=== PATIENT | male | born 1935 | race Caucasian/White ===

== ENCOUNTER 2020-02-17 14:58 | Emergency (ER) | payer OTHER ==
[~2020-02-17] VITALS: Ht 175.3 cm; Wt 77.1 kg
[~2020-02-17 14:58] MED LIST: ARICEPT 5 MG TAB5 MG PO; ASPIR 8181 M1 PO; B-COMPLEX PLUS1 EACH PO; COREG25 MG PO; COREG6.25 MG PO; DERMACINRX5000 UNIT PO; DULCOLAX STOOL100 M1 PO; FOLBIC RF TABL1 EACH PO; FOLIC ACID1 MG PO; FUROSEMIDE 20 M20 M1 PO; HYDRALAZINE 10M10 MG PO; HYDROCHLOROTH12.5 M1 PO; KLOR-CON 10 ER10 MEQ PO; LIPITOR 40 MG T40 M1 PO; LISINOPRIL20 MG PO; NAMENDA 10 MG T10 MG PO; NAMENDA XR21 MG PO; NORVASC 2.5 MG2.5 M1 PO; PLAVIX 75 MG TA75 MG PO; PROTONIX40 M2 PO; SEROQUEL 50 MG50 M1 PO; VITAMIN B-121000 MC2 SUBLING; VITAMIN D1000 UNI1 PO
[2020-02-17 15:19] LABS: URINE BILIRUBIN NEGATIVE (Negative); URINE BLOOD NEGATIVE (Negative); URINE CLARITY CLEAR; URINE COLOR YELLOW; URINE GLUCOSE-RANDOM* NEGATIVE (Negative); URINE KETONES NEGATIVE (Negative); URINE LEUKOCYTES-REFLEX NEGATIVE (Negative); URINE NITRITE-REFLEX NEGATIVE (Negative); URINE PROTEIN (DIPSTICK) NEGATIVE (Negative); URINE UROBILINOGEN 0.2 E.U./dl (0.2-1.0)
[2020-02-17] MEDS ORDERED: GABAPENTIN 100100 MG PO (16:01)
[2020-02-17] MEDS ORDERED: CARVEDILOL12.5 MG PO (16:03)
[2020-02-17 16:06] LABS: ABSOLUTE NEUTROPHILS 4.7 thou/uL (1.4-8.2); BASOPHILS 0.7 % (0.0-2.0); EOSINOPHILS 1.9 % (0.0-3.0); HEMATOCRIT 42.3 % (42.0-52.0); HEMOGLOBIN 13.5 gm/dL (14.0-18.0); LYMPHOCYTES 20.8 % (24.0-44.0); MCH 28.5 pg (26.0-34.0); MCV 89.1 fL (80.0-100.0); MONOCYTES 7.4 % (1.0-8.0); POLYS 69.2 % (36.0-66.0); RBC 4.74 mil/uL (4.50-6.00); RDW 16.5 % (10.5-14.5); WBC 6.8 thou/uL (4.0-11.0)
[2020-02-17 16:17] LABS: CALCIUM 9.1 mg/dL (8.5-10.1); CREATININE 1.4 mg/dL (0.7-1.3); POTASSIUM 3.8 mmol/L (3.5-5.1)
[2020-02-17 16:27] LABS: LARGE PLATELETS OCCASIONAL; PLATELET COUNT 125 thou/uL (150-400)
[2020-02-18] MEDS ORDERED: MEMANTINE HCL10 MG PO (03:41)
[2020-02-18] MEDS ORDERED: KLOR-CON 10 ER10 MEQ PO (03:42)
[2020-02-18] MEDS ORDERED: SEROQUEL 100 M100 M1 PO (03:44)
[2020-02-18] MEDS ORDERED: QUETIAPINE FUMA50 MG PO (03:45)
[2020-02-18] MEDS ORDERED: VITAMIN D325 MC1 PO (03:49)
[2020-02-18] MEDS ORDERED: LIPITOR80 MG PO (03:50)
[2020-02-18 04:11] VITALS: BP 138/73
== END 2020-02-18 04:15 | disposition still patient (30) ==
LOC: ER 14:58
PROVIDERS: Emergency Medicine
DX: F03.91 Unspecified dementia, unspecified severity, with behavioral disturbance (principal); Z20.828 Contact with and (suspected) exposure to other viral communicable diseases; E78.5 Hyperlipidemia, unspecified; I25.10 Atherosclerotic heart disease of native coronary artery without angina pectoris; I10 Essential (primary) hypertension; K21.9 Gastro-esophageal reflux disease without esophagitis; Z79.82 Long term (current) use of aspirin; Z79.899 Other long term (current) drug therapy

== ENCOUNTER 2020-02-18 03:14 | Inpatient (IN) | payer OTHER ==
[~2020-02-18] VITALS: Ht 175.3 cm; Wt 80.5 kg
[~2020-02-18 03:14] MED LIST changes: +CARVEDILOL12.5 MG PO; +GABAPENTIN 100100 MG PO
[2020-02-18] MEDS ORDERED: MEMANTINE HCL10 MG PO (03:41)
[2020-02-18] MEDS ORDERED: KLOR-CON 10 ER10 MEQ PO (03:42)
[2020-02-18] MEDS ORDERED: SEROQUEL 100 M100 M1 PO (03:44)
[2020-02-18] MEDS ORDERED: QUETIAPINE FUMA50 MG PO (03:45)
[2020-02-18] MEDS ORDERED: VITAMIN D325 MC1 PO (03:49)
[2020-02-18] MEDS ORDERED: LIPITOR80 MG PO (03:50)
--- NOTE | 2020-02-18 05:22 | NUR ---
Report received from VALENTE Costa in ER. Pt arrived to unit at 0418 via w/c accompanied by ER staff. Pt oriented to room. Admission/assessment completed. Pt is oriented to self. Pt is calm, cooperative and pleasant. VS stable. DPOA is Maryam Muna, sister. Orders received from Dr. Brewer. Barb Parsons NP, notifed of arrival to unit (assessed in ED prior to admission). Pt denies pain at this time. Denies SI/HI. Pt is ambulatory. Pt is continent. Pt startles when approached from behind per report. Pt resting in bed at this time. Will continue to monitor for changes and safety per hospital protocol.
[2020-02-18 05:28] VITALS: BP 152/64
--- NOTE | 2020-02-18 05:32 | NUR ---
CALL PLACED TO PATIENT'S SISTER/DPOA ABDULLAHI CORNELIUS'S CELL NUMBER. PHONE RANG BUT UNABLE TO LEAVE MESSAGE. WANTED TO GET TELEPHONE CONSENT FOR TREATMENT AND LET HER KNOW PATIENT IS ON [facility] UNIT AND CODE NUMBER. ALSO NEED TO VERIFY THAT PATIENT IS TO STILL BE DNR. WILL HAVE DAYSHIFT NURSE TRY AND CONTACT DPOA TODAY FOR THIS INFORMATION.
--- NOTE | 2020-02-18 06:08 | NUR ---
PATIENT'S SISTER/DPOA ABDULLAHI CONNOR CALLED BACK. CONSENTS SIGNED PER TELEPHONE CONSENT. SHE STATES TO KEEP PATIENT A DNR. CODE NUMBER AND UNIT NUMBER GIVEN TO HER.
[2020-02-18 07:52] VITALS: BP 141/78
--- NOTE | 2020-02-18 16:48 | NUR ---
CA was unable to complete the assessment with the Pt due to cognitive impairment. CA was able to speak with the Pt's DPOA/ sister, Maryam Toro [phone]. CA requested a copy of the DPOA Paperwork. Maryam was able to fax that paperwork over. A copy was placed in the Pt's chart. Maryam provided some history on the Pt. Pt served 3 times in the [place] War. Pt startles easy. Maryam stated staff should call out Pt's name before approaching and touching the Pt, especially if waking Pt from sleep. Pt dx with kimmie is 2014 and was placed at [facility]. Pt moved to [facility] in in 2016. Pt has had several psychiatric stays ( 2015 [facility], 2016 and 2019 [facility], 2016 [place]). Pt had a stroke about 1 year ago. CA provided the 4 digit code to Maryam to call and check on PT. Maryam had no other questions or concerns at this time. CA will continue to follow
--- NOTE | 2020-02-18 17:19 | NUR ---
HAS BEEN VISIBLE IN DAYROOM OR WANDERING IN HALLWAYS THROUGHOUT SHIFT-NO EXIT SEEKING BEHAVIOR NOTED AND HAS NOT BEEN NOTED TO BE INTRUSIVE WITH PEERS OR ENTER THEIR ROOMS. CONVERSATION FRAGMENTED WITH NOTED APHASIA AND WORD FINDING DIFFICULTY. ABLE TO PROVIDE MOSTLY YES OR NO QUESTIONS DURING AM ASSESSMENT AND 1;1 INTERACTION WITH NURSING STAFF. DENIES PAIN/DISCOMFORT. LUNGS CLEAR. BS ACTIVE. APPETITE GOOD AND DOES FEED SELF.HAS BEEN STANDING AT EXIT DOOR AT TIMES BUT NOT OBSERVED TO BE TRYING TO GET OUT-IN FEMALE PT ROOM X1 BUT EASILY DIRECTED BACK OUT. INCONTINENT OF MODERATE AMOUNT STOOL AND NOTED TO BE PUTTING HANDS DOWN BACK OF PANTS AND SMEARING FECES ONTO PANTS. WAS COOPERATIVE WITH ALLOWING STAFF TO CLEAN HIM.
[2020-02-18 19:34] VITALS: BP 96/61
--- NOTE | 2020-02-19 02:56 | NUR ---
Assumed care of patient this pm shift. Calm and cooperative. Medication adherent. Takes medications whole with thin liquids. Alert and oriented x1. Confused. Wanders the halls and enters rooms that are not shut. Ambulates with a steady gait. Denies pain. No hi/si observed. Assessment shows no signs of acute distress. We will continue to monitor per hospital policy.
[2020-02-19 09:16] VITALS: BP 141/86
--- NOTE | 2020-02-19 15:35 | NUR ---
INITALLY THIS AM WAS MILDLY COMBATIVE WITH DRESSING AND INCONTINENT CARE-PUSHING STAFF AWAY-GRABBING THEIR HANDS SOILED BRIEF WAS BEING REMOVED AND REFUSING TO LET GO. ONCE DRESSED AND INCONTIENT CARE COMPLETED NO FURTHER AGITATION-COMPLIENT WITH AM MEDICATIONS ALTHOUGH CONTINUES TO STATE THAT HE FEELS THOUGH THERE ARE "TOO MANY" ORIENTED TO NAME ONLY . BP WNL-APPETITE GOOD.
[2020-02-19 19:29] VITALS: BP 102/61
[2020-02-20 00:49] VITALS: BP 102/61
--- NOTE | 2020-02-20 02:51 | NUR ---
PT CARE ASSUMED WITH PT IN THE ACTIVITY ROOM.PT CALM AND COORPERATIVE. MEDICATIONS TAKEN WHOLE WITH THIN LIQUID.PT IS ALERT AND ORIENTED X1 AND CONFUSE.PT ASSESSMENT WITH NO ACUTE DISTRESS.WILL CONTINUE TO MONITOR PER HOSPITAL POLICY
[2020-02-20 09:19] VITALS: BP 148/73
--- NOTE | 2020-02-20 13:51 | NUR ---
PATIENT IS ALERT, AND ORIENTED X 1, FORGETFUL, CONFUSED. HE IS UP, AND OUT ON THE UNIT, AMBULATE WITH SLOW STEADY GAIT. PATIENT TOOK ALL MEDICATION WHOLE WITHOUT DIFFICULTY, HE IS EATING MEALS, AND DRINKING FLID WELL. PATIENT DENIES SUICIDAL IDEATION, NOT ABLE TO APPRORIATELY RESPOND TO FURTHER ASSESSMENT QUESTIONS DUE TO COGNITIVE IMPAIRMENT. INCONTINENT CARE PROVIDED BY STAFF. AFFECT IS FLAT/BLUNTED, MOOD IS CALM, COOPERATIVE WITH CARE. NO AGITATION OR AGGRESSIVE BEHAVIOR NOTED AT THIS TIME. NO SIGN OF ACUTE DISTRESS NOTED, WILL CONTINUE TO REDIRECT, AND MONITOR FOR SAFETY.
[2020-02-20 20:06] VITALS: BP 128/69
[2020-02-20 20:35] VITALS: BP 128/69
--- NOTE | 2020-02-21 02:43 | NUR ---
PATIENT WAS UP WALKING THE HALLS OF UNIT MOST OF EVENING BEFORE HE WENT TO BED AROUND 2230. PATIENT KEPT ASKING TO TALK WITH HIS SON LUBNA. NO NUMBER ON CHART FOR LUBNA SO CALLED PATIENT'S SISTER, ABDULLAHI, VASYL. SHE STATES LUBNA LIVES IN [place] AND THE TIME IS LATER THERE SO SHE GLADLY SPOKE WITH PATIENT. HE IS APHASIC. HE WAS SATISFIED TALKING WITH HER. PATIENT IS A/0X 1. TONIGHT HE STATED THAT HE DOESN'T SEEM TO KNOW ANYBODY HERE. I EXPLAINED TO HIM THAT HE IS NOT IN HIS USUAL HOME AND THAT HE IS STAYING AT THE HOSPITAL FOR A FEW DAYS AND THEN WILL RETURN TO HIS FACILITY HOME. HE ASKED ME TO WRITE A GOOD REPORT ON HIM SO HE COULD GO BACK TO HIS HOME SOON. PATIENT WAS INCONTINENT OF A LARGE BM TONIGHT. ASSISTED PATIENT IN HELPING HIM GET CLEANED UP AND NEW BRIEFS/CLOTHES ON. PATIENT WAS PLEASANT AND COOPERATIVE. HE HAD HS SNACK OF ICECREAM AND SWALLOWED HIS HS MEDS WHOLE WITH WATER. HE DENIES PAIN. DENIES AND NO SIGNS OF SI/HI/AVH. PATIENT IS ABLE TO SOCIALIZE WITH OTHER RESIDENT'S AND PARTICIPATE IN CONVERSATION. PATIENT IS UP WITH STEADY GAIT AND EASILY DIRECTED. ROUTINE ROUNDS TO ASSESS FOR SAFETY AND STATUS OF PATIENT. CONTINUING TO MONITOR.
[2020-02-21 08:30] VITALS: BP 154/76
--- NOTE | 2020-02-21 09:00 | NUR ---
PT RESTING THIS AM WITH EYES CLOSED. PT SPEECH SLURRED FROM PREVIOUS STROKE. PT HAS STEADY GAIT. PT LUNGS CLEAR. PT TAKES MEDS WHOLE. NOTICED HE WAS CHEWING SOME MEDS. PT DRANK WATER TO HELP GET MEDS DOWN. PT TOLERATED WELL.
[2020-02-21 09:23] VITALS: BP 154/76
--- NOTE | 2020-02-21 17:19 | NUR ---
PT KEEPS ASKING ABOUT TALKING TO SOMEONE. NOT ABLE TO UNDERSTAND AT TIMES DUE TO STROKE.
[2020-02-21 19:14] VITALS: BP 109/62
[2020-02-21 19:45] VITALS: BP 109/62
--- NOTE | 2020-02-22 04:41 | NUR ---
Assumed care of patient this pm shift. Patient in good spirits, calm and cooperative. Alert and oriented to self and place. Blunted affect. Takes medications whole and is adherent to therapy. Patient ambulates without assistance and has a steady gait. Continent of bowel and bladder. Wears brief. Toileted self this shift. Assessment shows no signs of acute distress. No negative behaviors seen this shift. Patient does well mingling with peers and staff. We will continue to montior per hospital policy.
[2020-02-22 08:00] VITALS: BP 115/67
[2020-02-22 08:11] VITALS: BP 115/67
--- NOTE | 2020-02-22 09:06 | NUR ---
PT UP THIS AM EARLIER. PT TALKING WITH THIS TAVERN OPERATOR AND WAS TALKING ABOUT THE FOOD. ASSISTED PT WITH CUTTING UP THE FINNISH MUFFIN, PT ENCOURAGED TO EAT AND SHOWED HIM HIS FORK AND HE STARTED EATING. PT LUNGS CLEAR. PT TOOK MEDS WITH ENCOURAGEMENT THIS AM. PT TOLERATING THIN LIQUIDS.
--- NOTE | 2020-02-22 15:24 | NUR ---
CA spoke with Álvaro Velazquez, admissions at [facility] [phone], concerning d/c for Pt. Álvaro asked for an afternoon discharge due the facility requiring a 1 on 1 for the Pt. Also informed they are giving a 30 day notice on the Pt and asked if CA could send out referrals on the Pt. CA agreed with the request. Álvaro agreed to follow up with the referrals. Pt will be d/c to [facility] on 02/25/20 @ 1430 via [facility]. CA sent referrals to the following: [facility]
--- NOTE | 2020-02-22 15:44 | NUR ---
CA contacted Pt's DPOA, Maryam, to inform about Pt's discharge. CA also informed of her about the request from [facility] and the facilities referrals were sent. Maryam had no further concerns or questions.
--- NOTE | 2020-02-22 19:43 | NUR ---
PT HAS HAD A GOOD DAY TODAY. PT WALKS AROUND THE UNIT, PT HAD A SOFT BM TODAY AND NEEDED ASSISTANCE WITH CLEANING UP. PT EASILY DIRECTED AND FOLLOWS DIRECTIONS.
[2020-02-22 20:14] VITALS: BP 141/52
[2020-02-23 05:59] LABS: HEMATOCRIT 38.2 % (42.0-52.0); HEMOGLOBIN 12.3 gm/dL (14.0-18.0); MCH 28.7 pg (26.0-34.0); MCHC 32.2 g/dL (28.0-37.0); RBC 4.3 mil/uL (4.50-6.00); RDW 15.6 % (10.5-14.5); WBC 5.3 thou/uL (4.0-11.0)
[2020-02-23 06:09] LABS: CALCIUM 8.9 mg/dL (8.5-10.1); CREATININE 1.3 mg/dL (0.7-1.3)
[2020-02-23 06:11] LABS: POTASSIUM 4.1 mmol/L (3.5-5.1)
--- NOTE | 2020-02-23 06:14 | NUR ---
ASSESSMENT: PT ALERT AND ORIENT TIMES TWO. SAT IN DAY ROOM UNTIL APPROXIMATELY 2130 THEN HE WENT TO BED AND SLEPT ALL NIGHT UNTIL LAB DRAW TIME. DID HAVE TO REDIRECT PT OUT OF SOME ONE ELSES ROOM, HE WAS VERY COOPERATIVE. DENIED PAIN, SOB AND N/V. NO INCONTINENT OF B&B. VSS. WILL CONTINUE TO MONITOR.
[2020-02-23 09:38] VITALS: BP 176/95
--- NOTE | 2020-02-23 10:45 | NUR ---
1030 RESUMMED CARE FROM OVERNIGHT THIS AM, PATIENT IN ROOM ASLEEP. PATIENT GOT UP ATE BREAKFAST TOOK MEDICATION WITHOUT INCIDENCE, PATIENT ORIENTED TO SELF. PATIENTS ABDOMEN SOFT ROUND BOWEL SOUNDS PRESENT LUNGS CLEAR PATIENT CANNOT TELL ME ABOUT SI/HI/AH/VH. PATIENT HAS DEMENTIA COGNITIVE IMPAIRMENT PATIENT CALM WALKING THE HALLS. WILL CONTINUE TO MONITOR PATIENT FOR SAFETY AND BEHAVIORS.
[2020-02-23 19:41] VITALS: BP 135/65
--- NOTE | 2020-02-24 02:39 | NUR ---
PT ALERT AND ORIENTED X 1. WANDERING AROUND UNIT IN THE EVENING. APPEARS TO BE SLEEPING AT THIS TIME IN BED. PT DENIES SI/HI/AVH. DENIES PAIN OR DISCOMFORT. PT TOOK HS MEDS WITH WATER WITHOUT DIFFICULTY. BED ALARM ON FOR SAFETY.
[2020-02-24 09:27] VITALS: BP 165/90
--- NOTE | 2020-02-24 11:40 | NUR ---
1130 RESUMMED CARE FROM OVERNIGHT SHIFT THIS, PATIENT SITTING IN DAY ROOM WATCHING TV. PATIENT ATE BREAKFAST TOOK MEDICATION WITHOUT INCIDENCE. PATIENTS ABDOMEN SOFT ROUND BOWEL SOUNDS PRESENT LUNGS CLEAR. PATIENT ORIENTED TO SELF AND PLACE PATIENT COOPERATIVE CALM. PATIENT INTERACTS WITH OTHER PATIENTS AND LIKES TO WALK THE HALLS AT TIMES. PATIENT PARTICIPATED IN GROUPS PATIENT DENIES AI/HI/AH/VH AT PRESENT. WILL CONTINUE TO MONITOR PATIENT FOR SAFETY AND BEHAVIORS.
[2020-02-24 18:46] VITALS: BP 128/68
[2020-02-24 20:00] VITALS: BP 128/68
--- NOTE | 2020-02-25 02:46 | NUR ---
PATIENT WAS UP IN DINING ROOM TONIGHT BUT WENT TO BED EARLY. HE STATES HE WAS TIRED. HE DIDN'T HAVE HS SNACK AND WAS SLEEPING BY 2030. PATIENT SLEPT HARD AND HS MEDS GIVEN LATE D/T UNABLE TO WAKE UP D/T HE SLEEPS SO SOUND. PATIENT UP AT 0245 TO USE BATHROOM AND BACK TO BED. HE IS MORE AWAKE AND LESS SEDATED AT THIS TIME. PT A/0X1. PATIENT VERY PLEASANT AND COOPERATIVE. PATIENT WAS TRYING TO TELL ME HOW HE USED TO DRINK ALCOHOL ALL THE TIME AND HE WAS NICE AT THE TIME. PATIENT APPEARS TO BE SLEEPING AT THIS TIME. BED IN LOW POSITION AND BED ALARM IS ON. PATIENT DOES HAVE A STEADY GAIT BUT DOES GET DISORIENTED WHEN WAKING UP TO USE THE BATHROOM AT NIGHT AND CAN BE UNSTEADY AT THAT TIME. PATIENT DENIES PAIN, SI/HI/AVH. ROUTINE ROUNDS TO ASSESS FOR SAFETY AND STATUS OF PATIENT.
[2020-02-25 09:25] VITALS: BP 138/69
[2020-02-25] MEDS ORDERED: SEROQUEL 25 MG25 M1 PO (09:55)
[2020-02-25] MEDS ORDERED: SEROQUEL 100 M100 M1 PO (09:55)
[2020-02-25 10:58] VITALS: BP 138/69
--- NOTE | 2020-02-25 11:57 | NUR ---
CA recieved a call from Álvaro Menjivar at [facility]. Álvaro requested a referral be sent to [place]. Álvaro provided contact information for [facility] [phone] at [place]. CA contacted [facility] concerning the matter. CA was informed that [place] was an [facility]. CA informed [facility] that the Pt was being discharged from [facility] and was no longer meeting [facility]iria. CA also informed that [facility] gave a 30 day notice on the Pt seemed to be avoiding taking the Pt back by send him to another hospital. [facility] did not want CA to send any information on the Pt. CA called Álvaro back and informed him that Pt cannot be sent out to another pshychiatric unit. CA informed Álvaro this is a violation of [facility] guidelines and offered the [facility] contact information if they are in need of clarification. Álvaro declined [facility] information and stated they are in desperate need to get the Pt another placment due to state asking the Pt to be removed from [facility]. CA educated on the need for the facility to be informed on they rules and guidelines surrounding the issue. Álvaro seemed t understand. Discharge will continue as planned for the PT
--- NOTE | 2020-02-25 12:41 | NUR ---
ASSUMED CARE AT 0700 THIS MORNING. PT. UP DRESSED AND IN THE DINING ROOM. HE TOOK HIS MORNING MEDICATIONS, CRUSHED AND IN PUDDING. HE WAS TAKING THE MEDICATIONS, HE REMARKED THAT THEY WERE NOT SWEET THEY WERE YESTERDAY. WHEN QUESTIONED TO WHAT THEY WERE IN (APPLESAUCE, ICE CREAM, ETC) HE DID NOT REMARK BUT TOOK THE MEDS. HE HAS BEEN PLEASANT AND COOPERATIVE WITH STAFF.
== END 2020-02-25 14:22 | DRG 884 ==
LOC: SBH 03:14
PROVIDERS: Hospitalist; ADMIT Psychiatry & Neurology Psychiatry; ATTEND Psychiatry & Neurology Psychiatry
DX: F03.91 Unspecified dementia, unspecified severity, with behavioral disturbance (principal); N17.9 Acute kidney failure, unspecified; N18.9 Chronic kidney disease, unspecified; E78.5 Hyperlipidemia, unspecified; K21.9 Gastro-esophageal reflux disease without esophagitis; I25.10 Atherosclerotic heart disease of native coronary artery without angina pectoris; F43.22 Adjustment disorder with anxiety; F22 Delusional disorders; I12.9 Hypertensive chronic kidney disease with stage 1 through stage 4 chronic kidney disease, or unspecified chronic kidney disease; Z79.899 Other long term (current) drug therapy
CPT/HCPCS: 10880